=== PATIENT | male | born 1975 | race Caucasian/White ===

== ENCOUNTER 2018-11-14 18:16 | Emergency (ER) | payer MEDICAID ==
[~2018-11-14] VITALS: Ht 190.5 cm; Wt 120.5 kg
[~2018-11-14 18:16] MED LIST: FLUO20CA39 PO; FLUT16SP26 BOTHNARES; HYDR-3095 PO; QUET25TA PO; TRAZ-91 PO
[2018-11-14 18:29] VITALS: BP 140/101
[2018-11-14] MEDS ORDERED: DOXYCYCLINE 100MG CAPSULE PO STA (19:12)
[2018-11-14] MEDS ORDERED: DOXY100C2 PO (19:18)
== END 2018-11-14 19:38 | disposition home or self-care (01) ==
LOC: ER 18:17
DX: L03.115 Cellulitis of right lower limb (principal); J45.909 Unspecified asthma, uncomplicated; F12.90 Cannabis use, unspecified, uncomplicated; Z88.0 Allergy status to penicillin; Z79.899 Other long term (current) drug therapy
CPT/HCPCS: 99283

== ENCOUNTER 2019-02-26 02:50 | Emergency (ER) | payer MEDICAID, OTHER ==
[~2019-02-26] VITALS: Ht 190.5 cm; Wt 87.2 kg
[2019-02-26 02:51] VITALS: BP 140/78
[2019-02-26] MEDS ORDERED: DOXY100C43 PO (03:09)
[2019-02-26] MEDS ORDERED: ALBU18HF2 INH (03:09)
[2019-02-26] MEDS ORDERED: PRED20TA PO (03:09)
== END 2019-02-26 03:24 | disposition home or self-care (01) ==
LOC: ER 02:51
DX: J20.9 Acute bronchitis, unspecified (principal); J45.909 Unspecified asthma, uncomplicated; I25.2 Old myocardial infarction; F17.200 Nicotine dependence, unspecified, uncomplicated; F12.90 Cannabis use, unspecified, uncomplicated; Z86.73 Personal history of transient ischemic attack (TIA), and cerebral infarction without residual deficits; Z88.0 Allergy status to penicillin; Z79.899 Other long term (current) drug therapy
CPT/HCPCS: 99284

== ENCOUNTER 2020-12-11 12:59 | Emergency (ER) | payer MEDICAID ==
[~2020-12-11] VITALS: Ht 190.5 cm; Wt 91.3 kg
[~2020-12-11 12:59] MED LIST changes: +ALBU18HF2 INH
[2020-12-11 13:07] VITALS: BP 132/88
[2020-12-11] MEDS ORDERED: DOXY100C43 PO (18:34)
== END 2020-12-11 18:40 | disposition home or self-care (01) ==
LOC: ER 12:59
DX: L03.115 Cellulitis of right lower limb (principal); R00.0 Tachycardia, unspecified; I25.2 Old myocardial infarction; J45.909 Unspecified asthma, uncomplicated; F12.90 Cannabis use, unspecified, uncomplicated; Z86.73 Personal history of transient ischemic attack (TIA), and cerebral infarction without residual deficits; Z88.0 Allergy status to penicillin; Z79.2 Long term (current) use of antibiotics; Z79.899 Other long term (current) drug therapy
CPT/HCPCS: 99283

== ENCOUNTER 2023-01-13 15:11 | Emergency (ER) | payer MEDICAID ==
[~2023-01-13] VITALS: Ht 190.5 cm; Wt 125.0 kg
[2023-01-13 15:27] VITALS: BP 129/98; PULSE 78; RESP 18; TEMP 97.8; O2SAT 98
--- NOTE | 2023-01-13 16:54 | NUR ---
PT LWOBS. ATTEMPTED TO CALL PT REGARDING HIS CC OF CP, PT'S PHONE IS OUT OF ORDER
== END 2023-01-13 17:39 | disposition left against medical advice (07) ==
LOC: ER 15:11
DX: R07.89 Other chest pain (principal); Z53.21 Procedure and treatment not carried out due to patient leaving prior to being seen by health care provider
CPT/HCPCS: 93005; 99281